=== PATIENT | female | born 1990 | race Caucasian/White ===

== ENCOUNTER 2018-06-14 19:44 | Emergency (ER) | payer BC, OTHER ==
[~2018-06-14] VITALS: Ht 149.9 cm; Wt 52.9 kg
[2018-06-14 19:54] VITALS: BP 119/80
[2018-06-14] MEDS ORDERED: HYDROcodone/APAP 5/325 TABLET PO PRN (20:00)
[2018-06-14] MEDS ORDERED: HYDROcodone/APAP 5/325 TABLET ONE (20:08)
== END 2018-06-14 21:15 ==
LOC: ED 21:07
DX: S62.344A Nondisplaced fracture of base of fourth metacarpal bone, right hand, initial encounter for closed fracture (principal); X58.XXXA Exposure to other specified factors, initial encounter; Y93.89 Activity, other specified; Y92.009 Unspecified place in unspecified non-institutional (private) residence as the place of occurrence of the external cause; Y99.8 Other external cause status
CPT/HCPCS: 29125; 99284

== ENCOUNTER 2018-06-16 06:22 | Emergency (ER) | payer BC ==
[~2018-06-16] VITALS: Ht 149.9 cm; Wt 53.8 kg
[2018-06-16 06:27] VITALS: BP 112/75
== END 2018-06-16 07:34 | disposition home or self-care (01) ==
LOC: ED 07:13
DX: S62.314A Displaced fracture of base of fourth metacarpal bone, right hand, initial encounter for closed fracture (principal); X58.XXXA Exposure to other specified factors, initial encounter; Y93.89 Activity, other specified; Y92.89 Other specified places as the place of occurrence of the external cause; Y99.8 Other external cause status
CPT/HCPCS: 29125; 99283